=== PATIENT | male | born 1950 | race Two or more races ===

== ENCOUNTER 2019-12-13 07:19 | Outpatient (CLI) | payer OTHER | END 2019-12-13 15:00 | disposition home or self-care (01) | LOC: LAB 07:19 | DX: R31.1 Benign essential microscopic hematuria (principal) ==

== ENCOUNTER 2019-12-14 07:14 | Outpatient (CLI) | payer OTHER | END 2019-12-14 14:24 | disposition home or self-care (01) | LOC: TOM 07:14 | DX: R31.0 Gross hematuria (principal); C66.2 Malignant neoplasm of left ureter ==

== ENCOUNTER 2020-01-02 09:57 | Inpatient (IN) | payer OTHER ==
[~2020-01-02] VITALS: Ht 172.7 cm; Wt 84.4 kg
== END 2020-01-04 09:52 | disposition home or self-care (01) | DRG 657 ==
LOC: CIR.AMB 09:57 → SURG 15:55 → O/R 15:55 → SURG 17:06
PROVIDERS: ADMIT Urology
PROC: 0TT Urinary System, Resection (ICD-10-PCS; principal; 2020-01-02 11:00)
PROC: 0T778DZ Dilation of Left Ureter with Intraluminal Device, Via Natural or Artificial Opening Endoscopic (ICD-10-PCS; 2020-01-02 11:00)
DX: C66.2 Malignant neoplasm of left ureter (principal); N13.8 Other obstructive and reflux uropathy; N41.0 Acute prostatitis; R31.0 Gross hematuria; I10 Essential (primary) hypertension; N40.1 Benign prostatic hyperplasia with lower urinary tract symptoms

== ENCOUNTER 2020-02-17 06:04 | Day surgery (SDC) | payer OTHER | END 2020-02-17 13:30 | disposition home or self-care (01) | LOC: CIR.AMB 06:04 | DX: C66.2 Malignant neoplasm of left ureter (principal); N40.1 Benign prostatic hyperplasia with lower urinary tract symptoms; R31.0 Gross hematuria ==